=== PATIENT | female | born 1980 | race Caucasian/White ===

== ENCOUNTER 2016-12-31 15:36 | Emergency (ER) | payer OTHER ==
[~2016-12-31] VITALS: Ht 185.4 cm; Wt 56.8 kg
[2016-12-31 16:35] LABS: HEMATOCRIT 41.8 % (36.0-46.0); MCH 32.2 PG (29.0-34.0); MCHC 35.4 G/DL (30.0-36.0); MCV 91.1 FL (83-99); MEAN PLAT.VOLUME 10.5 uM^3 (9.5-12.4); PLATELET COUNT 227 K/uL (156-360); RBC DIS.WIDTH-CV 12.1 % (11.8-14.6); RBC DIS.WIDTH-SD 39.6 % (39-53); RED BLOOD COUNT 4.59 M/uL (3.80-5.20)
[2016-12-31 16:42] LABS: ADD MIUA? YES; BILIRUBIN NEGATIVE; BLOOD SMALL; COLOR YELLOW ((YELLOW)); GLUCOSE (STRIP) NEGATIVE; KETONES 20; LEUKOCYTES NEGATIVE; NITRITE NEGATIVE; PROTEIN (STRIP) NEGATIVE; SPECIFIC GRAVITY 1.004 (1.000-1.030); UROBILINOGEN 0.2 MG/DL (0.2-1.0)
[2016-12-31 16:45] LABS: CHLORIDE 107 mEq/L (99-109); POTASSIUM 3.7 mEq/L (3.7-5.4); SODIUM 137 mEq/L (136-147)
[2016-12-31 16:47] LABS: GLUCOSE 101 mg/dL (70-99)
[2016-12-31 16:48] LABS: ANION GAP 10 MEQ/L (2-14)
[2016-12-31 16:49] LABS: BACTERIA RARE /HPF; EPITHELIAL CELLS 2+ /HPF; MUCUS NONE SEEN /LPF; RED BLOOD CELLS 0-5 /HPF (0-5); UCUL ADDED? NO; WHITE BLOOD CELLS 0-5 /HPF (0-5)
[2016-12-31 16:49] LABS: TOTAL BILIRUBIN 0.4 mg/dL (0.0-1.0)
[2016-12-31 16:50] LABS: ALKALINE PHOSPHATASE 71 IU/L (3-129)
[2016-12-31 16:51] LABS: GFR ESTIMATE (CALCULATED) > 59 mL/min/
[2016-12-31 16:52] LABS: UREA NITROGEN (BUN) 8 mg/dL (9-23)
[2016-12-31 16:54] LABS: LIPASE 22 U/L (1.0-51.0)
[2016-12-31 17:02] LABS: QUANTITATIVE HCG < 4.0 MIU/ML
[2016-12-31] MEDS ORDERED: ZOFRAN ODT4 MG PO (18:48)
[2016-12-31] MEDS ORDERED: PERCOCET 5/31 TABLET PO (18:48)
[2016-12-31 19:00] VITALS: BP 120/68
== END 2016-12-31 19:01 | disposition home or self-care (01) ==
LOC: EME 15:36
PROVIDERS: Physician Assistant
DX: N83.202 Unspecified ovarian cyst, left side (principal); F17.200 Nicotine dependence, unspecified, uncomplicated
CPT/HCPCS: 74020; 76856; 80053; 81003; 83690; 84702; 85027; 99281; 99283; J3010

== ENCOUNTER 2017-01-03 18:13 | Emergency (ER) | payer OTHER ==
[~2017-01-03] VITALS: Ht 160 cm; Wt 56.2 kg
[~2017-01-03 18:13] MED LIST: PERCOCET 5/31 TABLET PO; ZOFRAN ODT4 MG PO
[2017-01-03 18:47] LABS: ADD MIUA? YES; BILIRUBIN SMALL; BLOOD NEGATIVE; COLOR AMBER ((YELLOW)); GLUCOSE (STRIP) NEGATIVE; KETONES 80; LEUKOCYTES SMALL; NITRITE NEGATIVE; PROTEIN (STRIP) 100
[2017-01-03 18:59] LABS: HEMATOCRIT 40.6 % (36.0-46.0); MCHC 34.5 G/DL (30.0-36.0); MCV 92.7 FL (83-99); MEAN PLAT.VOLUME 10.5 uM^3 (9.5-12.4); PLATELET COUNT 222 K/uL (156-360); RBC DIS.WIDTH-SD 39.6 % (39-53); RED BLOOD COUNT 4.38 M/uL (3.80-5.20); WHITE BLOOD COUNT 6.4 K/uL (4.1-10.2)
[2017-01-03 19:00] LABS: BACTERIA RARE /HPF; EPITHELIAL CELLS 4+ /HPF; HYALINE CASTS TNTC /LPF; MUCUS 4+ /LPF; UCUL ADDED? NO; WHITE BLOOD CELLS 15-20 /HPF (0-5)
[2017-01-03 19:15] LABS: CHLORIDE 105 mEq/L (99-109); POTASSIUM 3.4 mEq/L (3.7-5.4); SODIUM 139 mEq/L (136-147)
[2017-01-03 19:17] LABS: GLUCOSE 93 mg/dL (70-99)
[2017-01-03 19:18] LABS: ANION GAP 9 MEQ/L (2-14)
[2017-01-03 19:19] LABS: TOTAL BILIRUBIN 0.4 mg/dL (0.0-1.0)
[2017-01-03 19:20] LABS: ALKALINE PHOSPHATASE 66 IU/L (3-129)
[2017-01-03 19:21] LABS: GFR ESTIMATE (CALCULATED) > 59 mL/min/
[2017-01-03 19:22] LABS: UREA NITROGEN (BUN) 7 mg/dL (9-23)
[2017-01-03 19:30] LABS: QUANTITATIVE HCG < 4.0 MIU/ML
[2017-01-03] MEDS ORDERED: KEFLEX500 MG PO (21:06)
[2017-01-03 21:34] VITALS: BP 117/65
== END 2017-01-03 21:36 | disposition home or self-care (01) ==
LOC: EME 18:13
DX: N83.209 Unspecified ovarian cyst, unspecified side (principal); N39.0 Urinary tract infection, site not specified; F17.200 Nicotine dependence, unspecified, uncomplicated
CPT/HCPCS: 74177; 80053; 81003; 84702; 85027; 99281; 99284; J1885; J2405; J7030

== ENCOUNTER 2017-01-11 15:47 | Emergency (ER) | payer OTHER ==
[~2017-01-11] VITALS: Ht 157.5 cm; Wt 56.0 kg
[~2017-01-11 15:47] MED LIST changes: +KEFLEX500 MG PO
[2017-01-11 17:01] LABS: HEMATOCRIT 40.1 % (36.0-46.0); MCH 32.5 PG (29.0-34.0); MCHC 34.4 G/DL (30.0-36.0); MCV 94.4 FL (83-99); MEAN PLAT.VOLUME 10.9 uM^3 (9.5-12.4); PLATELET COUNT 208 K/uL (156-360); RBC DIS.WIDTH-CV 12.1 % (11.8-14.6); RBC DIS.WIDTH-SD 40.4 % (39-53); RED BLOOD COUNT 4.25 M/uL (3.80-5.20); WHITE BLOOD COUNT 6.3 K/uL (4.1-10.2)
[2017-01-11 17:11] LABS: CHLORIDE 107 mEq/L (99-109); POTASSIUM 4.1 mEq/L (3.7-5.4); SODIUM 140 mEq/L (136-147)
[2017-01-11 17:13] LABS: GLUCOSE 88 mg/dL (70-99)
[2017-01-11 17:15] LABS: ANION GAP 9 MEQ/L (2-14); TOTAL BILIRUBIN 0.3 mg/dL (0.0-1.0)
[2017-01-11 17:17] LABS: ALKALINE PHOSPHATASE 62 IU/L (3-129); GFR ESTIMATE (CALCULATED) > 59 mL/min/
[2017-01-11 17:18] LABS: UREA NITROGEN (BUN) 6 mg/dL (9-23)
[2017-01-11 17:20] LABS: LIPASE 5 U/L (1.0-51.0)
[2017-01-11 17:26] LABS: QUANTITATIVE HCG < 4.0 MIU/ML
[2017-01-11 18:11] LABS: ADD MIUA? YES; BILIRUBIN NEGATIVE; BLOOD SMALL; COLOR STRAW ((YELLOW)); GLUCOSE (STRIP) NEGATIVE; KETONES NEGATIVE; LEUKOCYTES NEGATIVE; NITRITE NEGATIVE; PROTEIN (STRIP) NEGATIVE; SPECIFIC GRAVITY 1.004 (1.000-1.030); UROBILINOGEN 0.2 MG/DL (0.2-1.0)
[2017-01-11] MEDS ORDERED: AMOXI PO (18:24)
[2017-01-11] MEDS ORDERED: CITALOPRAM HBR10 MG PO (18:26)
[2017-01-11 18:33] LABS: BACTERIA RARE /HPF; EPITHELIAL CELLS RARE /HPF; MUCUS TRACE /LPF; RED BLOOD CELLS 0-5 /HPF (0-5); UCUL ADDED? NO; WHITE BLOOD CELLS 0-5 /HPF (0-5)
[2017-01-11] MEDS ORDERED: FLAGYL500 MG PO (20:46)
[2017-01-11] MEDS ORDERED: CIPRO500 MG PO (20:46)
[2017-01-11] MEDS ORDERED: DIFLUCAN150 MG PO (20:47)
[2017-01-11 21:05] VITALS: BP 97/67
== END 2017-01-11 21:21 | disposition home or self-care (01) ==
LOC: EME 15:47
PROVIDERS: Physician Assistant
DX: K52.9 Noninfective gastroenteritis and colitis, unspecified (principal); R11.2 Nausea with vomiting, unspecified; R00.0 Tachycardia, unspecified; F17.200 Nicotine dependence, unspecified, uncomplicated
CPT/HCPCS: 74177; 80053; 81003; 83605; 83690; 84702; 85027; 87040; 99281; 99284; J1885; J2405; J3010; J7030

== ENCOUNTER 2017-01-15 06:38 | Emergency (ER) | payer OTHER ==
[~2017-01-15] VITALS: Ht 157.5 cm; Wt 56.7 kg
[~2017-01-15 06:38] MED LIST changes: +AMOXI PO; +CIPRO500 MG PO; +CITALOPRAM HBR10 MG PO; +DIFLUCAN150 MG PO; +FLAGYL500 MG PO
[2017-01-15] MEDS ORDERED: DEXILANT60 MG PO (07:07)
[2017-01-15 07:25] LABS: EOSINOPHIL (%) 0.7 % (0-5); EOSINOPHIL COUNT 0.1 K/uL (0-0.3); HEMATOCRIT 38.9 % (36.0-46.0); IMMATURE GRANULOCYTE (%) 0.1 % (0.0-0.7); IMMATURE GRANULOCYTE COUNT 0.1 K/uL; LYMPHOCYTE COUNT 1.4 K/uL (1.0-2.8); MCH 32.2 PG (29.0-34.0); MCHC 34.7 G/DL (30.0-36.0); MCV 92.8 FL (83-99); MEAN PLAT.VOLUME 10.8 uM^3 (9.5-12.4); MONOCYTE (%) 5.1 % (3-12); MONOCYTE COUNT 0.4 K/uL (0-0.8); PLATELET COUNT 215 K/uL (156-360); RBC DIS.WIDTH-SD 39.6 % (39-53); RED BLOOD COUNT 4.19 M/uL (3.80-5.20); WHITE BLOOD COUNT 6.8 K/uL (4.1-10.2)
[2017-01-15 07:49] LABS: ANION GAP 9 MEQ/L (2-14); CHLORIDE 105 MEQ/L (99-109); POTASSIUM 3.7 MEQ/L (3.7-5.4); SAMPLE HEMOLYSIS CHECK 0; SAMPLE ICTERIC CHECK 0; SAMPLE LIPEMIA CHECK 0; SODIUM 138 MEQ/L (136-147)
[2017-01-15 07:54] LABS: GFR ESTIMATE (CALCULATED) > 59 mL/min/; GLUCOSE 93 mg/dL (70-99); UREA NITROGEN (BUN) 6 mg/dL (9-23)
[2017-01-15 07:56] LABS: QUANTITATIVE HCG < 4.0 MIU/ML
[2017-01-15 08:31] LABS: ADD MIUA? YES; BILIRUBIN NEGATIVE; BLOOD SMALL; COLOR YELLOW ((YELLOW)); GLUCOSE (STRIP) NEGATIVE; KETONES 5; LEUKOCYTES NEGATIVE; NITRITE NEGATIVE; PROTEIN (STRIP) NEGATIVE; SPECIFIC GRAVITY 1.005 (1.000-1.030); UROBILINOGEN 0.2 MG/DL (0.2-1.0)
[2017-01-15 08:34] LABS: BACTERIA NONE SEEN /HPF; EPITHELIAL CELLS 1+ /HPF; MUCUS NONE SEEN /LPF; RED BLOOD CELLS 0-5 /HPF (0-5); UCUL ADDED? NO; WHITE BLOOD CELLS 0-5 /HPF (0-5)
[2017-01-15] MEDS ORDERED: TYLENOL WITH C1 EACH PO (09:07)
[2017-01-15 09:27] VITALS: BP 95/54
[2017-01-16 12:16] LABS: CHLAMYDIA TRACHOMATIS NEGATIVE; NEISSERIA GONORRHOEAE NEGATIVE
== END 2017-01-15 09:28 | disposition home or self-care (01) ==
LOC: EME 06:38
PROVIDERS: Emergency Medicine
DX: R10.31 Right lower quadrant pain (principal); N89.8 Other specified noninflammatory disorders of vagina; M54.5 Low back pain; R11.2 Nausea with vomiting, unspecified; F17.200 Nicotine dependence, unspecified, uncomplicated
CPT/HCPCS: 80048; 81003; 84702; 85025; 87210; 87491; 87591; 99281; 99284; J1885; J2405; J7030

== ENCOUNTER 2017-01-17 18:46 | Emergency (ER) | payer OTHER ==
[~2017-01-17] VITALS: Ht 157.5 cm; Wt 55.9 kg
[~2017-01-17 18:46] MED LIST changes: +DEXILANT60 MG PO; +TYLENOL WITH C1 EACH PO
[2017-01-17 19:19] LABS: ADD MIUA? NO; BILIRUBIN NEGATIVE; BLOOD NEGATIVE; COLOR COLORLESS ((YELLOW)); GLUCOSE (STRIP) NEGATIVE; KETONES NEGATIVE; LEUKOCYTES NEGATIVE; NITRITE NEGATIVE; PROTEIN (STRIP) NEGATIVE; SPECIFIC GRAVITY 1.002 (1.000-1.030); UCUL ADDED? NO; UROBILINOGEN 0.2 MG/DL (0.2-1.0)
[2017-01-17 19:27] LABS: HEMATOCRIT 38.7 % (36.0-46.0); MCHC 34.6 G/DL (30.0-36.0); MCV 92.4 FL (83-99); PLATELET COUNT 202 K/uL (156-360); RBC DIS.WIDTH-CV 11.8 % (11.8-14.6); RBC DIS.WIDTH-SD 39.3 % (39-53); RED BLOOD COUNT 4.19 M/uL (3.80-5.20); WHITE BLOOD COUNT 7.4 K/uL (4.1-10.2)
[2017-01-17 19:38] LABS: CHLORIDE 109 mEq/L (99-109); POTASSIUM 3.6 mEq/L (3.7-5.4); SODIUM 142 mEq/L (136-147)
[2017-01-17 19:40] LABS: GLUCOSE 85 mg/dL (70-99)
[2017-01-17 19:41] LABS: ANION GAP 11 MEQ/L (2-14)
[2017-01-17 19:43] LABS: ALKALINE PHOSPHATASE 67 IU/L (3-129)
[2017-01-17 19:44] LABS: GFR ESTIMATE (CALCULATED) > 59 mL/min/
[2017-01-17 19:45] LABS: UREA NITROGEN (BUN) 6 mg/dL (9-23)
[2017-01-17 19:48] LABS: TOTAL BILIRUBIN 0.2 mg/dL (0.0-1.0)
[2017-01-17 20:03] LABS: QUANTITATIVE HCG < 4.0 MIU/ML
[2017-01-17 22:50] VITALS: BP 121/76
== END 2017-01-17 23:07 | disposition home or self-care (01) ==
LOC: EME 18:46
DX: R10.9 Unspecified abdominal pain (principal); Z98.890 Other specified postprocedural states
CPT/HCPCS: 71020; 74000; 80053; 81003; 84702; 85027; 99281; 99284

== ENCOUNTER 2017-05-16 08:20 | Day surgery (SDC) | payer OTHER ==
[~2017-05-16] VITALS: Ht 160 cm; Wt 59.0 kg
[~2017-05-16 08:20] MED LIST changes: +LIORESAL10 MG PO; +NEURONTIN100 MG PO; +OMEPRAZOLE40 M1 PO; +PRILOSEC PO; +SINGULAIR10 MG PO; +ULTRAM50 MG PO
== END 2017-05-16 10:04 | disposition home or self-care (01) ==
LOC: PAIN 08:20 → SDC 09:15 → PAIN 10:04
DX: M51.16 Intervertebral disc disorders with radiculopathy, lumbar region (principal); M51.06 Intervertebral disc disorders with myelopathy, lumbar region; M54.5 Low back pain; M54.9 Dorsalgia, unspecified; G89.29 Other chronic pain; K21.9 Gastro-esophageal reflux disease without esophagitis; J45.909 Unspecified asthma, uncomplicated; F17.210 Nicotine dependence, cigarettes, uncomplicated; Z79.891 Long term (current) use of opiate analgesic
CPT/HCPCS: J1100; J2250; J3010

== ENCOUNTER 2017-06-15 08:24 | Day surgery (SDC) | payer OTHER ==
[~2017-06-15] VITALS: Ht 160 cm; Wt 59.0 kg
== END 2017-06-15 09:44 | disposition home or self-care (01) ==
LOC: PAIN 08:24 → SDC 09:00 → PAIN 09:44
DX: M47.26 Other spondylosis with radiculopathy, lumbar region (principal); M51.16 Intervertebral disc disorders with radiculopathy, lumbar region; G89.29 Other chronic pain; F17.210 Nicotine dependence, cigarettes, uncomplicated; F12.90 Cannabis use, unspecified, uncomplicated; Z79.891 Long term (current) use of opiate analgesic
CPT/HCPCS: J1100; J2250; J3010

== ENCOUNTER 2017-07-17 13:27 | Day surgery (SDC) | payer OTHER ==
[~2017-07-17] VITALS: Ht 160 cm; Wt 59.0 kg
== END 2017-07-17 15:59 | disposition home or self-care (01) ==
LOC: PAIN 13:27 → SDC 14:15 → PAIN 15:59
DX: M47.26 Other spondylosis with radiculopathy, lumbar region (principal); M51.06 Intervertebral disc disorders with myelopathy, lumbar region; F41.9 Anxiety disorder, unspecified; G89.29 Other chronic pain; K21.9 Gastro-esophageal reflux disease without esophagitis; F17.200 Nicotine dependence, unspecified, uncomplicated
CPT/HCPCS: J1030; J2250; J3010; S0020

== ENCOUNTER 2017-07-25 10:25 | Day surgery (SDC) | payer OTHER ==
[~2017-07-25] VITALS: Ht 160 cm; Wt 59.0 kg
== END 2017-07-25 12:24 | disposition home or self-care (01) ==
LOC: PAIN 10:25 → SDC 11:15 → PAIN 12:24
DX: M47.26 Other spondylosis with radiculopathy, lumbar region (principal); M51.06 Intervertebral disc disorders with myelopathy, lumbar region; M51.16 Intervertebral disc disorders with radiculopathy, lumbar region; M54.5 Low back pain; G89.29 Other chronic pain; M79.1 Myalgia; M54.2 Cervicalgia; K21.9 Gastro-esophageal reflux disease without esophagitis; M48.02 Spinal stenosis, cervical region; J45.909 Unspecified asthma, uncomplicated; F17.210 Nicotine dependence, cigarettes, uncomplicated; F12.90 Cannabis use, unspecified, uncomplicated; Z79.891 Long term (current) use of opiate analgesic
CPT/HCPCS: J1030; J2250; J3010; S0020

== ENCOUNTER 2017-09-18 10:18 | Day surgery (SDC) | payer OTHER ==
[~2017-09-18] VITALS: Ht 160 cm; Wt 61.2 kg
[~2017-09-18 10:18] MED LIST changes: +CELEXA10 MG PO; -CITALOPRAM HBR10 MG PO
[2017-09-18 10:49] VITALS: BP 109/74
[2017-09-18 14:20] VITALS: BP 125/76
[2017-09-18 15:05] VITALS: BP 129/77
== END 2017-09-18 15:05 | disposition home or self-care (01) ==
LOC: SDC 10:18 → 2SOUTH 15:32 → EDSTATUS 15:32 → SDC 15:33
PROC: 0UBC7ZX Excision of Cervix, Via Natural or Artificial Opening, Diagnostic (ICD-10-PCS; principal; 2017-09-18)
DX: N87.9 Dysplasia of cervix uteri, unspecified (principal); B34.9 Viral infection, unspecified; K21.9 Gastro-esophageal reflux disease without esophagitis; M47.26 Other spondylosis with radiculopathy, lumbar region; J45.909 Unspecified asthma, uncomplicated; F17.200 Nicotine dependence, unspecified, uncomplicated
CPT/HCPCS: 88305; 88307; J1100; J1170; J1885; J2250; J2405; J3010

== ENCOUNTER 2017-10-23 08:52 | Day surgery (SDC) | payer OTHER ==
[~2017-10-23] VITALS: Ht 160 cm; Wt 62.1 kg
== END 2017-10-23 10:18 | disposition home or self-care (01) ==
LOC: PAIN 08:52 → SDC 09:30 → PAIN 10:18
DX: M47.26 Other spondylosis with radiculopathy, lumbar region (principal); M51.17 Intervertebral disc disorders with radiculopathy, lumbosacral region; M51.06 Intervertebral disc disorders with myelopathy, lumbar region; G89.29 Other chronic pain; M79.1 Myalgia; F41.9 Anxiety disorder, unspecified; M54.2 Cervicalgia; M48.02 Spinal stenosis, cervical region; F17.200 Nicotine dependence, unspecified, uncomplicated; J45.909 Unspecified asthma, uncomplicated
CPT/HCPCS: J1030; J2250; J3010; S0020

== ENCOUNTER → 2017-10-30 | Day surgery (SDC) | payer OTHER ==
[~2017-10-30] VITALS: Ht 160 cm; Wt 62.1 kg
== END | disposition home or self-care (01) ==
LOC: PAIN 08:36 → SDC 09:30
DX: M47.26 Other spondylosis with radiculopathy, lumbar region (principal); M51.16 Intervertebral disc disorders with radiculopathy, lumbar region; M51.06 Intervertebral disc disorders with myelopathy, lumbar region; M79.1 Myalgia; M48.02 Spinal stenosis, cervical region; M54.5 Low back pain; J45.909 Unspecified asthma, uncomplicated; K21.9 Gastro-esophageal reflux disease without esophagitis; F17.200 Nicotine dependence, unspecified, uncomplicated
CPT/HCPCS: J1030; J1885; J2250; J3010; S0020